=== PATIENT | male | born 1960 | race Caucasian/White ===

== ENCOUNTER 2018-09-20 19:03 | Inpatient (IN) ==
[2018-09-20] MEDS ORDERED: SODIUM CHLORIDE 0.9% 500 ML IV STA (19:33)
[2018-09-20] MEDS ORDERED: ONDANSETRON 4 MG/2 ML VIAL IV STA (19:33)
[2018-09-20] MEDS ORDERED: HYDROmorphone 2 MG/1 ML VIAL IV STA (19:33)
[2018-09-20] MEDS ORDERED: PANTOPRAZOLE 40 MG VIAL IV STA (19:33)
[2018-09-20 20:17] LABS: Basophils % 0.2 % (0.0-0.8); Eosinophils # 0.1 10*3/uL (0.0-0.87); Eosinophils % 1.4 % (0.00-10.9); Hematocrit 32.6 VOL% (42.0-52.0); Hemoglobin 10.5 GM/DL (14.0-18.0); Immature Granulocytes % 0.4 %; Immature Granulocytes Absolute 0.03 #; Lymphocytes # 1.7 10*3/uL (1.4-4.0); Lymphocytes % 20.7 % (21.2-54.2); Mean Corpuscular HGB Conc 32.2 GM/DL (32-36); Mean Corpuscular Hemoglobin 27 PG (27-34); Mean Platelet Volume 9.1 FL (9.6-12.0); Monocytes % 11.9 % (1.7-12.7); Neutrophils # 5.2 10*3/uL (1.4-7.4); Neutrophils % 65.4 % (38.7-73.9); Platelet Count 384 T/CUMM (130-400); Red Blood Count 3.88 MC/CUMM (3.8-5.5); Red Cell Distribution Width 15.6 % (9.3-17.3)
[2018-09-20 20:32] LABS: Apearance,Urine Slightly Hazy (Clear); Bilirubin,Urine Negative (Negative); Blood, Urine Large mg/dL (Negative); Glucose,Urine (UA) Negative (Negative); Ketones,Urine Negative (Negative); Mucus,Urine Occasional /LPF (Occasional); Nitrite,Urine Negative (Negative); Protein,Urine >=500 MG/DL; RBC,Urine 2684 /HPF (0-4); Urine Color Red (Yellow); Urine Specific Gravity 1.011 (1.001-1.035); Urine Urobilinogen < 2.0 EU/DL (0.2-1.0)
[2018-09-20 20:35] LABS: Alanine Aminotransferase 15 U/L (16-61); Albumin 2.7 G/DL (3.4-5.0); Alkaline Phosphatase 87 U/L (45-117); Amylase 38 U/L (25-115); Aspartate Amino Transferase 14 U/L (0-37); Bilirubin,Total < 0.39 MG/DL (0.2-1.0); Blood Urea Nitrogen 12 MG/DL (7-18); Calcium 9.3 MG/DL (8.5-10.1); Glucose 78 MG/DL (74-106); Osmolality,Calculated 258.8 MOS/KG (273-304); Potassium 4.5 MMOL/L (3.5-5.1); Sodium 130 MMOL/L (136-145); Total Protein 7.9 G/DL (6.4-8.3); Troponin I < 0.015 NG/ML (0.00-0.045)
[2018-09-20] MEDS: SODIUM CHLORIDE 0.9% 1,000 ML IV SCH (23:58)
[2018-09-21] MEDS: cefTRIAXone 1,000 MG in SYRINGE 1 EACH IV SCH ×2 (00:10→23:08)
[2018-09-21] MEDS: HYDROmorphone 2 MG/1 ML VIAL IV PRN ×6 (00:13→23:13)
[2018-09-21 05:19] LABS: Basophils % 0.3 % (0.0-0.8); Eosinophils # 0.1 10*3/uL (0.0-0.87); Eosinophils % 1.4 % (0.00-10.9); Hematocrit 24.8 VOL% (42.0-52.0); Hemoglobin 7.8 GM/DL (14.0-18.0); Immature Granulocytes % 0.5 %; Immature Granulocytes Absolute 0.04 #; Lymphocytes # 1.9 10*3/uL (1.4-4.0); Mean Corpuscular HGB Conc 31.5 GM/DL (32-36); Mean Corpuscular Hemoglobin 27 PG (27-34); Mean Corpuscular Volume 85.8 FL (87-102); Mean Platelet Volume 9.1 FL (9.6-12.0); Monocytes # 1.2 10*3/uL (0.11-0.8); Monocytes % 15.3 % (1.7-12.7); Neutrophils # 4.4 10*3/uL (1.4-7.4); Neutrophils % 57.5 % (38.7-73.9); Platelet Count 396 T/CUMM (130-400); Red Blood Count 2.89 MC/CUMM (3.8-5.5); Red Cell Distribution Width 15.6 % (9.3-17.3); White Blood Count 7.6 T/CUMM (4-12)
[2018-09-21 05:51] LABS: Albumin 2.6 G/DL (3.4-5.0); Bilirubin,Total 0.5 MG/DL (0.2-1.0); Osmolality,Calculated 265.2 MOS/KG (273-304); Potassium 4.6 MMOL/L (3.5-5.1); Total Protein 7.1 G/DL (6.4-8.3)
[2018-09-21] MEDS ORDERED: SODIUM CHLORIDE 0.9% 1,000 ML IV PRN ×2 (07:42→11:40)
[2018-09-21] MEDS: PANTOPRAZOLE 40 MG TABLET PO SCH (08:10)
[2018-09-21] MEDS: SODIUM CHLORIDE 0.9% 1,000 ML IV SCH (08:12)
[2018-09-21] MEDS: OXYBUTYNIN XL 10 MG TABLET PO SCH (11:59)
[2018-09-21] MEDS: LISINOPRIL 20 MG TABLET PO SCH (12:06)
[2018-09-21] MEDS: oxyCODONE/ACETAMINOPHEN 5-325 MG TABLET PO PRN ×2 (12:10→19:25)
[2018-09-22] MEDS: HYDROmorphone 2 MG/1 ML VIAL IV PRN ×4 (03:31→20:21)
[2018-09-22] MEDS: SODIUM CHLORIDE 0.9% 1,000 ML IV SCH (03:35)
[2018-09-22 04:52] LABS: Basophils % 0.3 % (0.0-0.8); Eosinophils # 0.1 10*3/uL (0.0-0.87); Eosinophils % 1.8 % (0.00-10.9); Hematocrit 29.4 VOL% (42.0-52.0); Hemoglobin 9.2 GM/DL (14.0-18.0); Immature Granulocytes % 0.4 %; Immature Granulocytes Absolute 0.03 #; Lymphocytes # 1.4 10*3/uL (1.4-4.0); Lymphocytes % 18.3 % (21.2-54.2); Mean Corpuscular HGB Conc 31.3 GM/DL (32-36); Mean Corpuscular Hemoglobin 27 PG (27-34); Mean Platelet Volume 9.2 FL (9.6-12.0); Monocytes # 0.9 10*3/uL (0.11-0.8); Monocytes % 11.8 % (1.7-12.7); Neutrophils # 5.2 10*3/uL (1.4-7.4); Neutrophils % 67.4 % (38.7-73.9); Platelet Count 371 T/CUMM (130-400); Red Blood Count 3.42 MC/CUMM (3.8-5.5); Red Cell Distribution Width 15.4 % (9.3-17.3); White Blood Count 7.8 T/CUMM (4-12)
[2018-09-22 05:01] LABS: Calcium 9.3 MG/DL (8.5-10.1); Osmolality,Calculated 261.5 MOS/KG (273-304); Potassium 4.3 MMOL/L (3.5-5.1)
[2018-09-22] MEDS: oxyCODONE/ACETAMINOPHEN 5-325 MG TABLET PO PRN (09:49)
[2018-09-22] MEDS: LISINOPRIL 20 MG TABLET PO SCH (09:49)
[2018-09-22] MEDS: PANTOPRAZOLE 40 MG TABLET PO SCH (09:49)
[2018-09-22] MEDS: OXYBUTYNIN XL 10 MG TABLET PO SCH (09:49)
[2018-09-22] MEDS ORDERED: NALOXONE 0.4 MG/ML VIAL IV PRN (11:48)
[2018-09-23] MEDS: HYDROmorphone 2 MG/1 ML VIAL IV PRN ×6 (00:06→22:18)
[2018-09-23] MEDS: cefTRIAXone 1,000 MG in SYRINGE 1 EACH IV SCH (00:06)
[2018-09-23 05:21] LABS: Basophils % 0.3 % (0.0-0.8); Eosinophils # 0.1 10*3/uL (0.0-0.87); Eosinophils % 1.9 % (0.00-10.9); Hematocrit 28.4 VOL% (42.0-52.0); Immature Granulocytes % 0.3 %; Immature Granulocytes Absolute 0.02 #; Lymphocytes # 1.4 10*3/uL (1.4-4.0); Lymphocytes % 19.3 % (21.2-54.2); Mean Corpuscular HGB Conc 31.7 GM/DL (32-36); Mean Corpuscular Hemoglobin 28 PG (27-34); Mean Corpuscular Volume 86.9 FL (87-102); Mean Platelet Volume 9.2 FL (9.6-12.0); Monocytes # 1.1 10*3/uL (0.11-0.8); Monocytes % 14.4 % (1.7-12.7); Neutrophils # 4.7 10*3/uL (1.4-7.4); Neutrophils % 63.8 % (38.7-73.9); Platelet Count 341 T/CUMM (130-400); Red Blood Count 3.27 MC/CUMM (3.8-5.5); Red Cell Distribution Width 15.3 % (9.3-17.3); White Blood Count 7.4 T/CUMM (4-12)
[2018-09-23 05:45] LABS: Calcium 9.4 MG/DL (8.5-10.1); Osmolality,Calculated 261.5 MOS/KG (273-304); Potassium 4.3 MMOL/L (3.5-5.1)
[2018-09-23] MEDS: LISINOPRIL 20 MG TABLET PO SCH (09:07)
[2018-09-23] MEDS: OXYBUTYNIN XL 10 MG TABLET PO SCH (09:07)
[2018-09-23] MEDS: PANTOPRAZOLE 40 MG TABLET PO SCH (09:07)
[2018-09-23] MEDS: SODIUM CHLORIDE 0.9% 1,000 ML IV SCH (09:53)
[2018-09-23] MEDS: oxyCODONE/ACETAMINOPHEN 5-325 MG TABLET PO PRN (19:42)
[2018-09-24] MEDS: cefTRIAXone 1,000 MG in SYRINGE 1 EACH IV SCH ×2 (00:10→22:58)
[2018-09-24] MEDS: HYDROmorphone 2 MG/1 ML VIAL IV PRN ×5 (04:16→22:56)
[2018-09-24 05:30] LABS: Calcium 9.6 MG/DL (8.5-10.1); Osmolality,Calculated 261.5 MOS/KG (273-304); Potassium 4.2 MMOL/L (3.5-5.1)
[2018-09-24] MEDS: LISINOPRIL 20 MG TABLET PO SCH (09:32)
[2018-09-24] MEDS: OXYBUTYNIN XL 10 MG TABLET PO SCH (09:33)
[2018-09-24] MEDS: oxyCODONE/ACETAMINOPHEN 5-325 MG TABLET PO PRN (09:33)
[2018-09-24] MEDS: PANTOPRAZOLE 40 MG TABLET PO SCH (09:33)
[2018-09-24] MEDS: SODIUM CHLORIDE 0.9% 1,000 ML IV SCH (15:11)
[2018-09-25 04:47] LABS: Basophils % 0.1 % (0.0-0.8); Eosinophils # 0.3 10*3/uL (0.0-0.87); Eosinophils % 3.8 % (0.00-10.9); Hematocrit 27.7 VOL% (42.0-52.0); Hemoglobin 8.7 GM/DL (14.0-18.0); Immature Granulocytes % 0.4 %; Immature Granulocytes Absolute 0.03 #; Lymphocytes # 1.7 10*3/uL (1.4-4.0); Lymphocytes % 25.3 % (21.2-54.2); Mean Corpuscular HGB Conc 31.4 GM/DL (32-36); Mean Corpuscular Hemoglobin 27 PG (27-34); Mean Corpuscular Volume 85.5 FL (87-102); Mean Platelet Volume 9.3 FL (9.6-12.0); Monocytes # 1.1 10*3/uL (0.11-0.8); Monocytes % 15.8 % (1.7-12.7); Neutrophils # 3.7 10*3/uL (1.4-7.4); Neutrophils % 54.6 % (38.7-73.9); Platelet Count 325 T/CUMM (130-400); Red Blood Count 3.24 MC/CUMM (3.8-5.5); Red Cell Distribution Width 15.2 % (9.3-17.3); White Blood Count 6.8 T/CUMM (4-12)
[2018-09-25 06:05] LABS: Eosinophils 4 % (0-10); Lymphocytes 33 % (20-55); Platelet Estimate Decreased; Polychromasia Slight; Segmented Neutrophils 58 % (50-85); Total Cells Counted 100
[2018-09-25] MEDS: HYDROmorphone 2 MG/1 ML VIAL IV PRN ×2 (06:33→09:38)
[2018-09-25] MEDS ORDERED: HYDROmorphone PCA 30 MG/30 ML SYRINGE IV SCH (07:00)
[2018-09-25] MEDS ORDERED: ceFAZolin 1,000 MG in SYRINGE 1 EACH IV ONE (08:30)
[2018-09-25] MEDS ORDERED: DIAZEPAM 5 MG TABLET PO ONE ×2 (08:31→17:36)
[2018-09-25] MEDS: SODIUM CHLORIDE 0.9% 1,000 ML IV SCH ×4 (08:54→19:00)
[2018-09-25] MEDS ORDERED: fentaNYL 100 MCG/2 ML VIAL IV ONE (09:00)
[2018-09-25] MEDS ORDERED: MIDAZOLAM 2 MG/2 ML VIAL IV ONE (09:00)
[2018-09-25] MEDS: PANTOPRAZOLE 40 MG TABLET PO SCH (09:43)
[2018-09-25] MEDS: LISINOPRIL 20 MG TABLET PO SCH (09:43)
[2018-09-25] MEDS: OXYBUTYNIN XL 10 MG TABLET PO SCH (09:45)
[2018-09-25] MEDS ORDERED: HEPARIN/NACL 0.9% 2 UNITS/ML 2,000 ML IV ONE (10:16)
[2018-09-25] MEDS: HYDROmorphone PCA 30 MG/30 ML SYRINGE IV SCH (11:06)
[2018-09-25] MEDS ORDERED: MIDAZOLAM 2 MG/2 ML VIAL ONE ×2 (13:37→14:32)
[2018-09-25] MEDS: oxyCODONE/ACETAMINOPHEN 5-325 MG TABLET PO PRN ×2 (15:29→22:19)
[2018-09-25] MEDS ORDERED: HYDROmorphone 2 MG/1 ML VIAL IV ONE (16:09)
[2018-09-25] MEDS: oxyCODONE ER 10 MG TABLET PO SCH (16:17)
[2018-09-25] MEDS ORDERED: SODIUM CHLORIDE 0.9% 1,000 ML IV PRN ×2 (17:19→19:37)
[2018-09-25] MEDS ORDERED: FAMOTIDINE 20 MG TABLET PO ONE (17:36)
[2018-09-25] MEDS: LORazepam 2 MG/1 ML VIAL IV PRN (22:19)
[2018-09-25] MEDS: cefTRIAXone 1,000 MG in SYRINGE 1 EACH IV SCH (22:30)
[2018-09-26] MEDS: SODIUM CHLORIDE 0.9% 1,000 ML IV SCH ×3 (03:15→20:46)
[2018-09-26] MEDS: oxyCODONE ER 10 MG TABLET PO SCH ×2 (05:08→15:30)
[2018-09-26 06:12] LABS: Basophils % 0.2 % (0.0-0.8); Eosinophils # 0.1 10*3/uL (0.0-0.87); Eosinophils % 1.1 % (0.00-10.9); Hematocrit 32.1 VOL% (42.0-52.0); Hemoglobin 10.2 GM/DL (14.0-18.0); Immature Granulocytes % 0.5 %; Immature Granulocytes Absolute 0.05 #; Lymphocytes # 1.1 10*3/uL (1.4-4.0); Lymphocytes % 10.4 % (21.2-54.2); Mean Corpuscular HGB Conc 31.8 GM/DL (32-36); Mean Corpuscular Hemoglobin 27 PG (27-34); Mean Corpuscular Volume 85.4 FL (87-102); Mean Platelet Volume 9.6 FL (9.6-12.0); Monocytes # 1.5 10*3/uL (0.11-0.8); Monocytes % 14.4 % (1.7-12.7); Neutrophils # 7.6 10*3/uL (1.4-7.4); Neutrophils % 73.4 % (38.7-73.9); Platelet Count 337 T/CUMM (130-400); Red Blood Count 3.76 MC/CUMM (3.8-5.5); White Blood Count 10.4 T/CUMM (4-12)
[2018-09-26 06:22] LABS: Calcium 9.4 MG/DL (8.5-10.1); Osmolality,Calculated 260.5 MOS/KG (273-304); Potassium 4.1 MMOL/L (3.5-5.1)
[2018-09-26] MEDS ORDERED: DIAZEPAM 5 MG TABLET PO ONE (07:00)
[2018-09-26] MEDS ORDERED: FAMOTIDINE 20 MG TABLET PO ONE (07:00)
[2018-09-26] MEDS ORDERED: ROPIVACAINE 0.5% 30 ML VIAL ONE (09:37)
[2018-09-26 09:44] LABS: ABG Base Excess -3.9 MMOL/L (-2.5-2.5); ABG HCO3 21.2 MMOL/L (20-26); ABG Oxygen Saturation 99.5 % (95-100); ABG PH 7.362 (7.35-7.45); ABG TCO2 18.8 MMOL/L (23-27); Glucose Heart Surgery 148 MG/DL (74-106); Hematocrit Heart Surgery 34.8 PERCENT (42-52); Hemoglobin Heart Surgery 11.3 G/DL (14.0-18.0); PCO2 Patient Temp Arterial 35.2 MMHG; PH Patient Temp Arterial 7.376; Patient Temperature 36 CELCIUS; Potassium Heart/CVR 4.3 MMOL/L (3.5-5.1); Sodium Heart/CVR 128 MMOL/L (135-145)
[2018-09-26 09:46] LABS: Basophils % 0.2 % (0.0-0.8); Eosinophils # 0.2 10*3/uL (0.0-0.87); Eosinophils % 1.1 % (0.00-10.9); Hemoglobin 9.9 GM/DL (14.0-18.0); Immature Granulocytes % 0.9 %; Immature Granulocytes Absolute 0.12 #; Lymphocytes % 6.9 % (21.2-54.2); Mean Corpuscular HGB Conc 31.9 GM/DL (32-36); Mean Corpuscular Hemoglobin 28 PG (27-34); Mean Corpuscular Volume 86.6 FL (87-102); Mean Platelet Volume 9.2 FL (9.6-12.0); Monocytes # 1.2 10*3/uL (0.11-0.8); Monocytes % 8.7 % (1.7-12.7); Neutrophils # 11.4 10*3/uL (1.4-7.4); Neutrophils % 82.2 % (38.7-73.9); Platelet Count 313 T/CUMM (130-400); Red Blood Count 3.58 MC/CUMM (3.8-5.5); Red Cell Distribution Width 14.6 % (9.3-17.3); White Blood Count 13.9 T/CUMM (4-12)
[2018-09-26 10:18] LABS: Albumin 2.1 G/DL (3.4-5.0); Bilirubin,Total 0.6 MG/DL (0.2-1.0); Calcium 8.2 MG/DL (8.5-10.1); Osmolality,Calculated 265.4 MOS/KG (273-304); Potassium 4.5 MMOL/L (3.5-5.1); Total Protein 5.2 G/DL (6.4-8.3)
[2018-09-26] MEDS ORDERED: PHENYLEPHRINE DRIP 20 MG/250 ML PREMIX IV ONE (10:29)
[2018-09-26] MEDS ORDERED: ALBUMIN 5% 12.5 GM/250 ML VIAL IV ONE (10:29)
[2018-09-26] MEDS ORDERED: SEVOFLURANE 1 UNIT/15 MINUTE INH ONE (10:29)
[2018-09-26] MEDS ORDERED: PROPOFOL 200 MG/20 ML VIAL IV ONE (10:29)
[2018-09-26] MEDS ORDERED: ONDANSETRON 4 MG/2 ML VIAL ONE ×2 (10:30→10:34)
[2018-09-26] MEDS ORDERED: MIDAZOLAM 2 MG/2 ML VIAL ONE (10:30)
[2018-09-26] MEDS ORDERED: METOPROLOL TARTRATE 5 MG/5 ML VIAL IV ONE (10:30)
[2018-09-26] MEDS ORDERED: DEXAMETHASONE 4 MG/1 ML VIAL ONE (10:30)
[2018-09-26] MEDS ORDERED: SUFentanil 50 MCG/ML AMP ONE (10:30)
[2018-09-26] MEDS ORDERED: PHENYLEPHRINE 1 MG/10 ML SYRINGE IV ONE (10:31)
[2018-09-26] MEDS ORDERED: ROCURONIUM 100 MG/10 ML VIAL IV ONE (10:31)
[2018-09-26] MEDS ORDERED: LACTATED RINGERS 2,000 ML IV ONE (10:31)
[2018-09-26] MEDS ORDERED: HEPARIN/NACL 0.9% 2 UNITS/ML 500 ML IV ONE (10:31)
[2018-09-26] MEDS ORDERED: SODIUM CHLORIDE 0.9% 1,000 ML IV ONE (10:31)
[2018-09-26] MEDS ORDERED: NEOSTIGMINE 10 MG/10 ML VIAL ONE (10:32)
[2018-09-26] MEDS ORDERED: GLYCOPYRROLATE 0.4 MG/2 ML VIAL ONE (10:32)
[2018-09-26] MEDS ORDERED: CALCIUM CHLORIDE 1,000 MG/10 ML VIAL IV ONE (10:33)
[2018-09-26] MEDS ORDERED: HYDROmorphone 2 MG/1 ML VIAL ONE (10:34)
[2018-09-26] MEDS ORDERED: HYDROmorphone 2 MG/1 ML VIAL IV PRN (10:37)
[2018-09-26] MEDS: LISINOPRIL 20 MG TABLET PO SCH (11:18)
[2018-09-26] MEDS: OXYBUTYNIN XL 10 MG TABLET PO SCH (11:18)
[2018-09-26] MEDS: PANTOPRAZOLE 40 MG TABLET PO SCH (11:18)
[2018-09-26] MEDS: HYDROmorphone PCA 30 MG/30 ML SYRINGE IV SCH (11:23)
[2018-09-26] MEDS: KETAMINE IV SCH (11:52)
[2018-09-26] MEDS: SODIUM CHLORIDE 0.9% IV SCH (11:52)
[2018-09-26] MEDS ORDERED: GLUCAGON 1 MG VIAL IM PRN (11:57)
[2018-09-26] MEDS ORDERED: DEXTROSE 50% 25 GM/50 ML SYRINGE IV PRN (11:57)
[2018-09-26] MEDS ORDERED: SODIUM CHLORIDE 0.9% IV SCH (12:00)
[2018-09-26] MEDS ORDERED: KETAMINE IV SCH (12:00)
[2018-09-26] MEDS: hydrALAZINE 20 MG/1 ML VIAL IV PRN (13:33)
[2018-09-26 14:57] LABS: Hematocrit 33.8 VOL% (42.0-52.0); Hemoglobin 10.7 GM/DL (14.0-18.0)
[2018-09-26] MEDS ORDERED: AMINO ACIDS/DEXT/LYTES 4.25-5% 2,000 ML IV SCH (17:00)
[2018-09-26] MEDS ORDERED: cloNIDine 0.3 MG/24 HR PATCH TRANSDERM SCH (18:00)
[2018-09-26] MEDS: LORazepam 2 MG/1 ML VIAL IV PRN (22:27)
[2018-09-26] MEDS: cefTRIAXone 1,000 MG in SYRINGE 1 EACH IV SCH (22:30)
[2018-09-27 04:09] LABS: Basophils % 0.1 % (0.0-0.8); Immature Granulocytes % 0.6 %; Immature Granulocytes Absolute 0.08 #; Lymphocytes # 1.5 10*3/uL (1.4-4.0); Lymphocytes % 10.8 % (21.2-54.2); Mean Corpuscular HGB Conc 33.3 GM/DL (32-36); Mean Corpuscular Hemoglobin 28 PG (27-34); Mean Corpuscular Volume 83.1 FL (87-102); Mean Platelet Volume 10.4 FL (9.6-12.0); Monocytes % 14.2 % (1.7-12.7); Neutrophils # 10.4 10*3/uL (1.4-7.4); Neutrophils % 74.3 % (38.7-73.9); Platelet Count 315 T/CUMM (130-400); Red Blood Count 3.61 MC/CUMM (3.8-5.5); Red Cell Distribution Width 14.7 % (9.3-17.3); White Blood Count 14.1 T/CUMM (4-12)
[2018-09-27] MEDS: oxyCODONE ER 10 MG TABLET PO SCH ×3 (04:20→20:15)
[2018-09-27 04:25] LABS: Calcium 8.5 MG/DL (8.5-10.1); Osmolality,Calculated 262.5 MOS/KG (273-304); Potassium 4.3 MMOL/L (3.5-5.1)
[2018-09-27] MEDS: SODIUM CHLORIDE 0.9% 1,000 ML IV SCH ×3 (04:29→20:15)
[2018-09-27] MEDS: hydrALAZINE 20 MG/1 ML VIAL IV PRN (04:32)
[2018-09-27] MEDS: SODIUM CHLORIDE 0.9% IV SCH ×2 (04:43→12:43)
[2018-09-27] MEDS: KETAMINE IV SCH ×2 (04:43→12:43)
[2018-09-27] MEDS: oxyCODONE/ACETAMINOPHEN 5-325 MG TABLET PO PRN ×2 (09:44→20:15)
[2018-09-27] MEDS: OXYBUTYNIN XL 10 MG TABLET PO SCH (09:46)
[2018-09-27] MEDS: LISINOPRIL 20 MG TABLET PO SCH (09:46)
[2018-09-27] MEDS: PANTOPRAZOLE 40 MG TABLET PO SCH (09:46)
[2018-09-27] MEDS: HYDROmorphone PCA 30 MG/30 ML SYRINGE IV SCH (12:43)
[2018-09-28 04:14] LABS: Basophils % 0.1 % (0.0-0.8); Eosinophils % 0.3 % (0.00-10.9); Hemoglobin 8.3 GM/DL (14.0-18.0); Immature Granulocytes % 0.8 %; Immature Granulocytes Absolute 0.07 #; Lymphocytes # 1.3 10*3/uL (1.4-4.0); Lymphocytes % 14.8 % (21.2-54.2); Mean Corpuscular HGB Conc 31.9 GM/DL (32-36); Mean Corpuscular Hemoglobin 27 PG (27-34); Mean Corpuscular Volume 84.7 FL (87-102); Mean Platelet Volume 9.9 FL (9.6-12.0); Monocytes # 1.3 10*3/uL (0.11-0.8); Monocytes % 14.1 % (1.7-12.7); Neutrophils # 6.2 10*3/uL (1.4-7.4); Neutrophils % 69.9 % (38.7-73.9); Platelet Count 281 T/CUMM (130-400); Red Blood Count 3.07 MC/CUMM (3.8-5.5); Red Cell Distribution Width 15.2 % (9.3-17.3); White Blood Count 8.9 T/CUMM (4-12)
[2018-09-28] MEDS: SODIUM CHLORIDE 0.9% 1,000 ML IV SCH ×3 (04:20→20:44)
[2018-09-28 04:33] LABS: Calcium 8.2 MG/DL (8.5-10.1); Osmolality,Calculated 262.4 MOS/KG (273-304); Potassium 3.9 MMOL/L (3.5-5.1)
[2018-09-28] MEDS: SODIUM CHLORIDE 0.9% IV SCH (05:45)
[2018-09-28] MEDS: KETAMINE IV SCH (05:45)
[2018-09-28] MEDS: hydrALAZINE 20 MG/1 ML VIAL IV PRN (09:41)
[2018-09-28] MEDS: LISINOPRIL 20 MG TABLET PO SCH (09:41)
[2018-09-28] MEDS: PANTOPRAZOLE 40 MG TABLET PO SCH (09:42)
[2018-09-28] MEDS: OXYBUTYNIN XL 10 MG TABLET PO SCH (09:42)
[2018-09-28] MEDS: oxyCODONE ER 10 MG TABLET PO SCH ×2 (09:53→20:41)
[2018-09-28] MEDS: fentaNYL 50 MCG/HR PATCH TRANSDERM SCH (10:05)
[2018-09-28] MEDS: HYDROmorphone PCA 30 MG/30 ML SYRINGE IV SCH (11:10)
[2018-09-28] MEDS: POLYETHYLENE GLYCOL POWDER 17 GM PACK PO SCH ×2 (11:16→20:46)
[2018-09-28] MEDS: LACTULOSE 20 GM/30 ML UDCUP PO SCH ×2 (11:16→20:39)
[2018-09-28] MEDS: MULTIVITAMIN (BEROCCA) TABLET PO SCH (11:38)
[2018-09-28] MEDS: DOCUSATE SODIUM 100 MG CAPSULE PO SCH ×2 (11:38→20:40)
[2018-09-28] MEDS: oxyCODONE/ACETAMINOPHEN 5-325 MG TABLET PO PRN (20:40)
[2018-09-29] MEDS: SODIUM CHLORIDE 0.9% 1,000 ML IV SCH ×3 (04:25→23:21)
[2018-09-29 06:32] LABS: Basophils % 0.3 % (0.0-0.8); Eosinophils # 0.1 10*3/uL (0.0-0.87); Eosinophils % 1.8 % (0.00-10.9); Hematocrit 25.1 VOL% (42.0-52.0); Hemoglobin 8.1 GM/DL (14.0-18.0); Immature Granulocytes % 0.8 %; Immature Granulocytes Absolute 0.06 #; Lymphocytes # 1.3 10*3/uL (1.4-4.0); Lymphocytes % 16.3 % (21.2-54.2); Mean Corpuscular HGB Conc 32.3 GM/DL (32-36); Mean Corpuscular Hemoglobin 27 PG (27-34); Mean Corpuscular Volume 84.5 FL (87-102); Monocytes # 1.1 10*3/uL (0.11-0.8); Monocytes % 13.2 % (1.7-12.7); Neutrophils # 5.4 10*3/uL (1.4-7.4); Neutrophils % 67.6 % (38.7-73.9); Platelet Count 311 T/CUMM (130-400); Red Blood Count 2.97 MC/CUMM (3.8-5.5); Red Cell Distribution Width 14.9 % (9.3-17.3)
[2018-09-29 07:00] LABS: Calcium 8.2 MG/DL (8.5-10.1); Osmolality,Calculated 264.2 MOS/KG (273-304); Potassium 3.7 MMOL/L (3.5-5.1)
[2018-09-29] MEDS: oxyCODONE ER 10 MG TABLET PO SCH ×2 (09:19→20:35)
[2018-09-29] MEDS: OXYBUTYNIN XL 10 MG TABLET PO SCH (09:20)
[2018-09-29] MEDS: DOCUSATE SODIUM 100 MG CAPSULE PO SCH ×2 (09:20→20:36)
[2018-09-29] MEDS: PANTOPRAZOLE 40 MG TABLET PO SCH (09:20)
[2018-09-29] MEDS: MULTIVITAMIN (BEROCCA) TABLET PO SCH (09:20)
[2018-09-29] MEDS: LISINOPRIL 20 MG TABLET PO SCH (09:20)
[2018-09-29] MEDS: LACTULOSE 20 GM/30 ML UDCUP PO SCH ×2 (14:25→20:36)
[2018-09-29] MEDS: POLYETHYLENE GLYCOL POWDER 17 GM PACK PO SCH ×2 (14:25→20:37)
[2018-09-29] MEDS: HYDROmorphone PCA 30 MG/30 ML SYRINGE IV SCH (18:04)
[2018-09-30] MEDS: ALUMINUM/MAGNES/SIMETH MAX STR 30 ML UDCUP PO PRN ×3 (03:55→20:27)
[2018-09-30 05:33] LABS: Basophils % 0.2 % (0.0-0.8); Eosinophils # 0.1 10*3/uL (0.0-0.87); Eosinophils % 1.6 % (0.00-10.9); Hematocrit 26.6 VOL% (42.0-52.0); Hemoglobin 8.5 GM/DL (14.0-18.0); Immature Granulocytes % 0.7 %; Immature Granulocytes Absolute 0.06 #; Lymphocytes # 1.5 10*3/uL (1.4-4.0); Lymphocytes % 16.7 % (21.2-54.2); Mean Corpuscular Hemoglobin 27 PG (27-34); Mean Corpuscular Volume 85.8 FL (87-102); Mean Platelet Volume 9.5 FL (9.6-12.0); Monocytes # 1.3 10*3/uL (0.11-0.8); Neutrophils % 66.8 % (38.7-73.9); Platelet Count 356 T/CUMM (130-400); Red Cell Distribution Width 14.7 % (9.3-17.3); White Blood Count 8.9 T/CUMM (4-12)
[2018-09-30 05:46] LABS: Calcium 8.5 MG/DL (8.5-10.1); Osmolality,Calculated 261.5 MOS/KG (273-304); Potassium 3.7 MMOL/L (3.5-5.1)
[2018-09-30 05:51] LABS: % Iron Saturation 9.9 % (18-50); Ferritin 204.8 ng/ml (26-388)
[2018-09-30] MEDS: SODIUM CHLORIDE 0.9% 1,000 ML IV SCH ×3 (07:10→20:29)
[2018-09-30] MEDS: MULTIVITAMIN (BEROCCA) TABLET PO SCH (08:39)
[2018-09-30] MEDS: DOCUSATE SODIUM 100 MG CAPSULE PO SCH ×2 (08:39→22:01)
[2018-09-30] MEDS: OXYBUTYNIN XL 10 MG TABLET PO SCH (08:39)
[2018-09-30] MEDS: LISINOPRIL 20 MG TABLET PO SCH (08:39)
[2018-09-30] MEDS: oxyCODONE ER 10 MG TABLET PO SCH ×2 (08:40→22:01)
[2018-09-30] MEDS: PANTOPRAZOLE 40 MG TABLET PO SCH (08:40)
[2018-09-30] MEDS: LACTULOSE 20 GM/30 ML UDCUP PO SCH ×2 (08:40→22:02)
[2018-09-30] MEDS: POLYETHYLENE GLYCOL POWDER 17 GM PACK PO SCH ×2 (08:41→22:01)
[2018-09-30] MEDS: HYDROmorphone PCA 30 MG/30 ML SYRINGE IV SCH ×2 (08:44→11:54)
[2018-09-30] MEDS: MAGNESIUM HYDROXIDE SUSP 30 ML UDCUP PO PRN (13:31)
[2018-10-01] MEDS: hydrALAZINE 20 MG/1 ML VIAL IV PRN (04:42)
[2018-10-01] MEDS: MAGNESIUM HYDROXIDE SUSP 30 ML UDCUP PO PRN (04:46)
[2018-10-01] MEDS: ONDANSETRON 4 MG/2 ML VIAL IV PRN ×2 (04:46→23:06)
[2018-10-01] MEDS: SODIUM CHLORIDE 0.9% 1,000 ML IV SCH ×2 (04:46→12:46)
[2018-10-01 05:28] LABS: Calcium 8.1 MG/DL (8.5-10.1); Osmolality,Calculated 267.1 MOS/KG (273-304); Potassium 3.5 MMOL/L (3.5-5.1)
[2018-10-01] MEDS ORDERED: LINACLOTIDE 145 MCG CAPSULE PO SCH (07:30)
[2018-10-01] MEDS: OXYBUTYNIN XL 10 MG TABLET PO SCH (09:13)
[2018-10-01] MEDS: PANTOPRAZOLE 40 MG TABLET PO SCH (09:13)
[2018-10-01] MEDS: MULTIVITAMIN (BEROCCA) TABLET PO SCH (09:13)
[2018-10-01] MEDS: LISINOPRIL 20 MG TABLET PO SCH (09:13)
[2018-10-01] MEDS: LACTULOSE 20 GM/30 ML UDCUP PO SCH ×3 (09:13→21:11)
[2018-10-01] MEDS: fentaNYL 50 MCG/HR PATCH TRANSDERM SCH (09:13)
[2018-10-01] MEDS: POLYETHYLENE GLYCOL POWDER 17 GM PACK PO SCH ×2 (09:13→21:11)
[2018-10-01] MEDS: DOCUSATE SODIUM 100 MG CAPSULE PO SCH ×2 (09:13→21:11)
[2018-10-01] MEDS: oxyCODONE ER 10 MG TABLET PO SCH (09:16)
[2018-10-01] MEDS: HYDROmorphone PCA 30 MG/30 ML SYRINGE IV SCH (13:52)
[2018-10-01] MEDS ORDERED: POTASSIUM CHLORIDE 20 MEQ TABLET PO ONE (14:30)
[2018-10-01] MEDS ORDERED: METHYLNALTREXONE 12 MG/0.6 ML VIAL SUBCUT ONE (14:45)
[2018-10-01] MEDS: SODIUM PHOSPHATE ENEMA 133 ML BOTTLE RECTAL PRN ×2 (16:33→21:12)
[2018-10-01] MEDS ORDERED: oxyCODONE IR 5 MG TABLET PO PRN (17:50)
[2018-10-01] MEDS: ALVIMOPAN 12 MG CAPSULE PO SCH (21:11)
[2018-10-01] MEDS: LUBIPROSTONE 24 MCG CAPSULE PO SCH (21:11)
[2018-10-02] MEDS: SODIUM CHLORIDE 0.9% 1,000 ML IV SCH ×3 (00:01→21:26)
[2018-10-02] MEDS: LACTULOSE 20 GM/30 ML UDCUP PO SCH ×5 (01:42→20:35)
[2018-10-02] MEDS: POLYETHYLENE GLYCOL POWDER 17 GM PACK PO SCH ×3 (03:28→20:34)
[2018-10-02 05:33] LABS: Basophils % 0.2 % (0.0-0.8); Eosinophils % 0.1 % (0.00-10.9); Hematocrit 28.5 VOL% (42.0-52.0); Immature Granulocytes % 0.9 %; Mean Corpuscular HGB Conc 31.6 GM/DL (32-36); Mean Corpuscular Hemoglobin 27 PG (27-34); Mean Corpuscular Volume 85.8 FL (87-102); Mean Platelet Volume 10.3 FL (9.6-12.0); Monocytes # 1.3 10*3/uL (0.11-0.8); Monocytes % 11.4 % (1.7-12.7); Neutrophils # 8.7 10*3/uL (1.4-7.4); Neutrophils % 78.4 % (38.7-73.9); Platelet Count 472 T/CUMM (130-400); Red Blood Count 3.32 MC/CUMM (3.8-5.5); Red Cell Distribution Width 14.6 % (9.3-17.3)
[2018-10-02] MEDS ORDERED: FAMOTIDINE 20 MG/2 ML VIAL IV ONE (08:07)
[2018-10-02] MEDS ORDERED: ACETAMINOPHEN 500 MG TABLET PO ONE (08:07)
[2018-10-02] MEDS ORDERED: diphenhydrAMINE CAP 25 MG CAPSULE PO ONE (08:07)
[2018-10-02] MEDS ORDERED: DEXAMETHASONE INJ 10 MG in SODIUM CHLORIDE 0.9% 50 ML IV ONE (09:00)
[2018-10-02] MEDS ORDERED: IRON SUCROSE 300 MG in SODIUM CHLORIDE 0.9% 100 ML IV ONE (09:00)
[2018-10-02] MEDS: PANTOPRAZOLE 40 MG TABLET PO SCH (09:08)
[2018-10-02] MEDS: LUBIPROSTONE 24 MCG CAPSULE PO SCH ×2 (09:08→20:34)
[2018-10-02] MEDS: ALVIMOPAN 12 MG CAPSULE PO SCH ×2 (09:08→20:35)
[2018-10-02] MEDS: MULTIVITAMIN (BEROCCA) TABLET PO SCH (09:08)
[2018-10-02] MEDS: OXYBUTYNIN XL 10 MG TABLET PO SCH (09:08)
[2018-10-02] MEDS: DOCUSATE SODIUM 100 MG CAPSULE PO SCH ×2 (09:08→20:35)
[2018-10-02] MEDS: LISINOPRIL 20 MG TABLET PO SCH (09:08)
[2018-10-02] MEDS: ALUMINUM/MAGNES/SIMETH MAX STR 30 ML UDCUP PO PRN (09:09)
[2018-10-02] MEDS: HYDROmorphone PCA 30 MG/30 ML SYRINGE IV SCH (12:59)
[2018-10-02] MEDS: oxyCODONE/ACETAMINOPHEN 5-325 MG TABLET PO PRN ×2 (14:15→20:31)
[2018-10-03] MEDS: POLYETHYLENE GLYCOL POWDER 17 GM PACK PO SCH (03:49)
[2018-10-03] MEDS: LACTULOSE 20 GM/30 ML UDCUP PO SCH ×2 (03:49→06:01)
[2018-10-03] MEDS: MULTIVITAMIN (BEROCCA) TABLET PO SCH (08:35)
[2018-10-03] MEDS: PANTOPRAZOLE 40 MG TABLET PO SCH (08:35)
[2018-10-03] MEDS: LUBIPROSTONE 24 MCG CAPSULE PO SCH (08:35)
[2018-10-03] MEDS: oxyCODONE/ACETAMINOPHEN 5-325 MG TABLET PO PRN (08:35)
[2018-10-03] MEDS: DOCUSATE SODIUM 100 MG CAPSULE PO SCH (08:35)
[2018-10-03] MEDS: ALVIMOPAN 12 MG CAPSULE PO SCH (08:35)
[2018-10-03] MEDS: OXYBUTYNIN XL 10 MG TABLET PO SCH (08:35)
[2018-10-03 08:39] LABS: Basophils % 0.1 % (0.0-0.8); Eosinophils # 0.1 10*3/uL (0.0-0.87); Eosinophils % 0.9 % (0.00-10.9); Hematocrit 25.3 VOL% (42.0-52.0); Hemoglobin 8.1 GM/DL (14.0-18.0); Immature Granulocytes % 0.9 %; Immature Granulocytes Absolute 0.08 #; Lymphocytes % 21.8 % (21.2-54.2); Mean Corpuscular Hemoglobin 28 PG (27-34); Mean Corpuscular Volume 86.1 FL (87-102); Monocytes # 1.3 10*3/uL (0.11-0.8); Monocytes % 14.3 % (1.7-12.7); Neutrophils # 5.7 10*3/uL (1.4-7.4); Platelet Count 486 T/CUMM (130-400); Red Blood Count 2.94 MC/CUMM (3.8-5.5); Red Cell Distribution Width 14.9 % (9.3-17.3); White Blood Count 9.2 T/CUMM (4-12)
[2018-10-03] MEDS: LISINOPRIL 20 MG TABLET PO SCH (08:39)
[2018-10-03 11:56] VITALS: BP 156/67
== END 2018-10-03 12:00 | disposition home or self-care (01) | DRG 657 ==
LOC: N.ED 19:03 → N.EDINP 22:34 → SUATTDRO 22:34 → N.4E 23:13 → N.ICU 09-25 07:53 → N.4E 09-28 17:10
PROVIDERS: ADMIT Emergency Medicine; ATTEND Internal Medicine Cardiovascular Disease
PROC: IREMBBI (2018-09-25 13:00)

== ENCOUNTER 2018-12-21 00:42 | Inpatient (IN) ==
[2018-12-21] MEDS ORDERED: SODIUM CHLORIDE 0.9% 1,000 ML IV STA ×2 (02:30→02:44)
[2018-12-21] MEDS ORDERED: ONDANSETRON 4 MG/2 ML VIAL IV STA (02:30)
[2018-12-21] MEDS ORDERED: VANCOMYCIN INJ 1,250 MG in SODIUM CHLORIDE 0.9% 250 ML IV STA (02:44)
[2018-12-21] MEDS ORDERED: CEFEPIME 2,000 MG in SODIUM CHLORIDE 0.9% 100 ML IV STA (02:44)
[2018-12-21] MEDS ORDERED: NOREPINEPHRINE 8 MG in SODIUM CHLORIDE 0.9% 242 ML IV PRN (02:46)
[2018-12-21] MEDS ORDERED: CEFEPIME 2,000 MG in SYRINGE 1 EACH IV STA (02:47)
[2018-12-21 02:59] LABS: Basophils % 0.3 % (0.0-0.8); Eosinophils # 0.1 10*3/uL (0.0-0.87); Eosinophils % 1.3 % (0.00-10.9); Hematocrit 40.5 VOL% (42.0-52.0); Hemoglobin 13.3 GM/DL (14.0-18.0); Immature Granulocytes % 0.5 %; Immature Granulocytes Absolute 0.04 #; Lymphocytes # 1.8 10*3/uL (1.4-4.0); Lymphocytes % 24.4 % (21.2-54.2); Mean Corpuscular HGB Conc 32.8 GM/DL (32-36); Mean Corpuscular Volume 80.8 FL (87-102); Mean Platelet Volume 11.2 FL (9.6-12.0); Monocytes % 14.4 % (1.7-12.7); Neutrophils % 59.1 % (38.7-73.9); Platelet Count 245 T/CUMM (130-400); Red Blood Count 5.01 MC/CUMM (3.8-5.5); Red Cell Distribution Width 16.9 % (9.3-17.3); White Blood Count 7.5 T/CUMM (4-12)
[2018-12-21] MEDS ORDERED: VANCOMYCIN 1,000 MG VIAL ONE (03:03)
[2018-12-21 03:38] LABS: Alanine Aminotransferase 16 U/L (16-61); Alkaline Phosphatase 96 U/L (45-117); Aspartate Amino Transferase 16 U/L (0-37); Bilirubin,Total < 0.39 MG/DL (0.2-1.0); Blood Urea Nitrogen 64 MG/DL (7-18); Calcium 7.8 MG/DL (8.5-10.1); Glucose 98 MG/DL (74-106); Osmolality,Calculated 264.8 MOS/KG (273-304); Total Protein 7.5 G/DL (6.4-8.3)
[2018-12-21 04:40] LABS: Amorphous Crystals,Urine Occasional /HPF (Few); Apearance,Urine CLOUDY (Clear); Bacteria,Urine Few /HPF (Few); Bilirubin,Urine Negative (Negative); Blood, Urine Small mg/dL (Negative); Glucose,Urine (UA) Negative (Negative); Hyaline Casts,Urine 46 /LPF (0-3); Ketones,Urine Negative (Negative); Mucus,Urine Occasional /LPF (Occasional); Nitrite,Urine Negative (Negative); Protein,Urine 30 MG/DL; RBC,Urine 3 /HPF (0-4); Urine Specific Gravity 1.021 (1.001-1.035); Urine Urobilinogen < 2.0 EU/DL (0.2-1.0); WBC,Urine 5 /HPF (0-6)
[2018-12-21 04:43] LABS: Urine Color Yellow (Yellow)
[2018-12-21] MEDS ORDERED: SODIUM CHLORIDE 0.9% 1,000 ML IV ONE (08:08)
[2018-12-21] MEDS ORDERED: methylPREDNISolone SOD SUC 125 MG/2 ML VIAL IV ONE (08:09)
[2018-12-21] MEDS: DIPHENOXYLATE/ATROPINE 2.5-0.025 MG TABLET PO SCH ×3 (10:13→21:37)
[2018-12-21] MEDS: PANTOPRAZOLE 40 MG TABLET PO SCH (10:13)
[2018-12-21] MEDS: SODIUM CHLORIDE 0.9% 1,000 ML IV SCH (12:36)
[2018-12-21 15:49] LABS: Calcium 7.4 MG/DL (8.5-10.1); Osmolality,Calculated 268.5 MOS/KG (273-304)
[2018-12-21] MEDS: GABAPENTIN 300 MG CAPSULE PO SCH ×2 (16:32→21:37)
[2018-12-21] MEDS: oxyCODONE/ACETAMINOPHEN 5-325 MG TABLET PO PRN ×2 (17:06→22:55)
[2018-12-21] MEDS: methylPREDNISolone SOD SUC 125 MG/2 ML VIAL IV SCH (21:38)
[2018-12-22] MEDS: HYDROmorphone 2 MG/1 ML VIAL IV PRN ×4 (00:04→20:39)
[2018-12-22] MEDS: SODIUM CHLORIDE 0.9% 1,000 ML IV SCH ×4 (00:07→15:52)
[2018-12-22 06:26] LABS: Eosinophils % 0.2 % (0.00-10.9); Hematocrit 30.6 VOL% (42.0-52.0); Hemoglobin 10.3 GM/DL (14.0-18.0); Immature Granulocytes % 0.5 %; Immature Granulocytes Absolute 0.03 #; Lymphocytes # 0.7 10*3/uL (1.4-4.0); Lymphocytes % 11.4 % (21.2-54.2); Mean Corpuscular HGB Conc 33.7 GM/DL (32-36); Mean Corpuscular Volume 80.3 FL (87-102); Monocytes % 3.3 % (1.7-12.7); Neutrophils % 84.6 % (38.7-73.9); Platelet Count 194 T/CUMM (130-400); Red Blood Count 3.81 MC/CUMM (3.8-5.5); Red Cell Distribution Width 16.8 % (9.3-17.3); White Blood Count 6.1 T/CUMM (4-12)
[2018-12-22 06:47] LABS: Albumin 2.4 G/DL (3.4-5.0); Bilirubin,Total 0.8 MG/DL (0.2-1.0); Osmolality,Calculated 268.5 MOS/KG (273-304); Total Protein 6.1 G/DL (6.4-8.3)
[2018-12-22] MEDS ORDERED: LINACLOTIDE 145 MCG CAPSULE PO SCH (09:00)
[2018-12-22] MEDS: GABAPENTIN 300 MG CAPSULE PO SCH ×3 (09:38→20:38)
[2018-12-22] MEDS: DIPHENOXYLATE/ATROPINE 2.5-0.025 MG TABLET PO SCH ×3 (09:39→20:44)
[2018-12-22] MEDS: PANTOPRAZOLE 40 MG TABLET PO SCH (09:39)
[2018-12-22] MEDS: methylPREDNISolone SOD SUC 125 MG/2 ML VIAL IV SCH (09:39)
[2018-12-22] MEDS: predniSONE 20 MG TABLET PO SCH (12:13)
[2018-12-22] MEDS: SODIUM CHLORIDE 23.4% CONC INJ 38.5 MEQ, SODIUM BICARB INJ 100 MEQ in STERILE WATER INJ... IV SCH (12:13)
[2018-12-22] MEDS: fentaNYL 50 MCG/HR PATCH TRANSDERM SCH (12:54)
[2018-12-22] MEDS: oxyCODONE/ACETAMINOPHEN 5-325 MG TABLET PO PRN (18:40)
[2018-12-22] MEDS: ONDANSETRON 4 MG/2 ML VIAL IV PRN (20:56)
[2018-12-22] MEDS ORDERED: methylPREDNISolone SOD SUC 40 MG/1 ML VIAL IV SCH (21:00)
[2018-12-23] MEDS: HYDROmorphone 2 MG/1 ML VIAL IV PRN ×4 (00:42→22:26)
[2018-12-23] MEDS: SODIUM CHLORIDE 23.4% CONC INJ 38.5 MEQ, SODIUM BICARB INJ 100 MEQ in STERILE WATER INJ... IV SCH ×2 (04:43→22:26)
[2018-12-23 05:42] LABS: Calcium 6.7 MG/DL (8.5-10.1); Osmolality,Calculated 266.5 MOS/KG (273-304)
[2018-12-23] MEDS: DIPHENOXYLATE/ATROPINE 2.5-0.025 MG TABLET PO SCH ×3 (08:53→20:26)
[2018-12-23] MEDS: GABAPENTIN 300 MG CAPSULE PO SCH ×3 (08:53→20:26)
[2018-12-23] MEDS: predniSONE 20 MG TABLET PO SCH (08:53)
[2018-12-23] MEDS: PANTOPRAZOLE 40 MG TABLET PO SCH (08:53)
[2018-12-23] MEDS: oxyCODONE/ACETAMINOPHEN 5-325 MG TABLET PO PRN ×2 (08:57→20:29)
[2018-12-23] MEDS ORDERED: MYLANTA/LIDO VISC 2:1 300 ML BOTTLE SWISH/SWAL PRN (10:40)
[2018-12-23] MEDS ORDERED: ONDANSETRON 4 MG/2 ML VIAL IV PRN (10:40)
[2018-12-23] MEDS ORDERED: traMADol 50 MG TABLET PO PRN (10:40)
[2018-12-23] MEDS ORDERED: guaiFENesin 200 MG/10 ML UDCUP PO PRN (10:40)
[2018-12-23] MEDS ORDERED: ALUMINUM/MAGNES/SIMETH MAX STR 30 ML UDCUP PO PRN (10:40)
[2018-12-23] MEDS ORDERED: ACETAMINOPHEN 325 MG TABLET PO PRN (10:40)
[2018-12-23] MEDS ORDERED: chlorproMAZINE INJ 25 MG in SODIUM CHLORIDE 0.9% 100 ML IV PRN (10:40)
[2018-12-23] MEDS ORDERED: LOPERAMIDE 2 MG CAPSULE PO PRN ×2 (10:40)
[2018-12-23] MEDS ORDERED: BENZTROPINE 2 MG/2 ML AMP IV PRN (10:40)
[2018-12-23] MEDS ORDERED: MAGNESIUM HYDROXIDE SUSP 30 ML UDCUP PO PRN (10:40)
[2018-12-23] MEDS ORDERED: PROMETHAZINE INJ 25 MG in SODIUM CHLORIDE 0.9% 50 ML IV PRN (10:40)
[2018-12-23] MEDS ORDERED: TEMAZEPAM 7.5 MG CAPSULE PO PRN (10:40)
[2018-12-23] MEDS ORDERED: LACTULOSE 20 GM/30 ML UDCUP PO PRN (10:40)
[2018-12-23] MEDS ORDERED: diphenhydrAMINE CAP 25 MG CAPSULE PO PRN (10:40)
[2018-12-23] MEDS ORDERED: chlorproMAZINE 25 MG TABLET PO PRN (10:40)
[2018-12-23] MEDS ORDERED: chlorproMAZINE INJ 50 MG in SODIUM CHLORIDE 0.9% 100 ML IV PRN (10:40)
[2018-12-23] MEDS ORDERED: MYLANTA/LIDO VISC 2:1 300 ML BOTTLE SWISH/SPIT PRN (10:40)
[2018-12-23] MEDS ORDERED: ALPRAZolam 0.25 MG TABLET PO PRN (10:40)
[2018-12-23] MEDS ORDERED: POTASSIUM CHLORIDE RIDER 10 MEQ in PREMIX 1 EACH IV PRN (11:02)
[2018-12-23] MEDS: POTASSIUM CHLORIDE RIDER 20 MEQ in PREMIX 1 EACH IV PRN ×2 (13:15→15:42)
[2018-12-24] MEDS: HYDROmorphone 2 MG/1 ML VIAL IV PRN ×2 (03:49→19:52)
[2018-12-24 05:51] LABS: Calcium 7.3 MG/DL (8.5-10.1); Osmolality,Calculated 269.1 MOS/KG (273-304)
[2018-12-24] MEDS ORDERED: FUROSEMIDE 40 MG/4 ML VIAL IV ONE ×2 (07:34→08:32)
[2018-12-24] MEDS ORDERED: FUROSEMIDE 20 MG/2 ML VIAL ONE (07:34)
[2018-12-24] MEDS ORDERED: FUROSEMIDE 40 MG/4 ML VIAL ONE (07:34)
[2018-12-24 08:03] LABS: Basophils % 0.1 % (0.0-0.8); Hematocrit 35.7 VOL% (42.0-52.0); Hemoglobin 12.2 GM/DL (14.0-18.0); Immature Granulocytes % 0.5 %; Immature Granulocytes Absolute 0.09 #; Lymphocytes % 5.2 % (21.2-54.2); Mean Corpuscular HGB Conc 34.2 GM/DL (32-36); Mean Corpuscular Volume 79.2 FL (87-102); Mean Platelet Volume 11.1 FL (9.6-12.0); Monocytes % 1.8 % (1.7-12.7); Neutrophils % 92.4 % (38.7-73.9); Platelet Count 247 T/CUMM (130-400); Red Blood Count 4.51 MC/CUMM (3.8-5.5); Red Cell Distribution Width 16.7 % (9.3-17.3); White Blood Count 19.5 T/CUMM (4-12)
[2018-12-24 08:31] LABS: Calcium 6.8 MG/DL (8.5-10.1); Osmolality,Calculated 269.9 MOS/KG (273-304)
[2018-12-24 08:34] LABS: Albumin 2.5 G/DL (3.4-5.0); Bilirubin,Direct 0.16 MG/DL (0.0-0.20); Bilirubin,Indirect 0.2 MG/DL (0.0-1.0); Bilirubin,Total 0.4 MG/DL (0.2-1.0); Total Protein 5.7 G/DL (6.4-8.3)
[2018-12-24 08:54] LABS: Band Neutrophils 1 % (0-10); Lymphocytes 3 % (20-55); Platelet Estimate Normal; Segmented Neutrophils 90 % (50-85); Total Cells Counted 100
[2018-12-24 08:56] LABS: Burr Cells Few; Ovalocytes Few
[2018-12-24 08:57] LABS: Polychromasia Slight
[2018-12-24] MEDS ORDERED: MAGNESIUM SULF RIDER 2 GM in PREMIX 1 EACH IV ONE (09:15)
[2018-12-24] MEDS: GABAPENTIN 300 MG CAPSULE PO SCH ×3 (11:31→21:09)
[2018-12-24] MEDS: DIPHENOXYLATE/ATROPINE 2.5-0.025 MG TABLET PO SCH ×3 (11:31→21:08)
[2018-12-24] MEDS: predniSONE 20 MG TABLET PO SCH (11:31)
[2018-12-24] MEDS: PANTOPRAZOLE 40 MG TABLET PO SCH (11:32)
[2018-12-24] MEDS: cefTRIAXone 1,000 MG in SYRINGE 1 EACH IV SCH (11:35)
[2018-12-24] MEDS: SODIUM CHLORIDE 23.4% CONC INJ 38.5 MEQ, SODIUM BICARB INJ 100 MEQ in STERILE WATER INJ... IV SCH (12:33)
[2018-12-24 22:56] LABS: ABG Base Excess -1.4 MMOL/L (-2.5-2.5); ABG HCO3 23.1 MMOL/L (20-26); ABG Oxygen Saturation 87.4 % (95-100); ABG PCO2 32.7 MM HG (35-48); ABG PH 7.439 (7.35-7.45); ABG PO2 54.4 MM HG (80-95); ABG TCO2 19.9 MMOL/L (23-27)
[2018-12-25 04:25] LABS: ABG HCO3 24.2 MMOL/L (20-26); ABG PCO2 32.1 MM HG (35-48); ABG PH 7.463 (7.35-7.45); ABG PO2 56.8 MM HG (80-95); ABG TCO2 20.5 MMOL/L (23-27); Pt O2 Delivery Device Other
[2018-12-25 05:07] LABS: Basophils # 0.1 10*3/uL (0.0-0.2); Basophils % 0.2 % (0.0-0.8); Eosinophils % 0.1 % (0.00-10.9); Hematocrit 32.8 VOL% (42.0-52.0); Immature Granulocytes % 1.3 %; Immature Granulocytes Absolute 0.28 #; Lymphocytes # 1.5 10*3/uL (1.4-4.0); Lymphocytes % 6.6 % (21.2-54.2); Mean Corpuscular HGB Conc 33.5 GM/DL (32-36); Mean Corpuscular Volume 80.4 FL (87-102); Mean Platelet Volume 10.2 FL (9.6-12.0); Monocytes % 3.5 % (1.7-12.7); Neutrophils % 88.3 % (38.7-73.9); Platelet Count 208 T/CUMM (130-400); Red Blood Count 4.08 MC/CUMM (3.8-5.5); Red Cell Distribution Width 16.7 % (9.3-17.3); White Blood Count 22.3 T/CUMM (4-12)
[2018-12-25 05:39] LABS: Calcium 7.6 MG/DL (8.5-10.1); Osmolality,Calculated 272.9 MOS/KG (273-304)
[2018-12-25 05:47] LABS: Band Neutrophils 1 % (0-10); Lymphocytes 5 % (20-55); Platelet Estimate Adequate; Segmented Neutrophils 89 % (50-85); Total Cells Counted 100
[2018-12-25] MEDS ORDERED: FUROSEMIDE 40 MG/4 ML VIAL IV ONE (08:06)
[2018-12-25] MEDS: PANTOPRAZOLE 40 MG TABLET PO SCH (09:27)
[2018-12-25] MEDS: predniSONE 20 MG TABLET PO SCH (09:27)
[2018-12-25] MEDS: fentaNYL 50 MCG/HR PATCH TRANSDERM SCH (09:27)
[2018-12-25] MEDS: DIPHENOXYLATE/ATROPINE 2.5-0.025 MG TABLET PO SCH ×3 (09:27→21:56)
[2018-12-25] MEDS: GABAPENTIN 300 MG CAPSULE PO SCH ×3 (09:27→21:56)
[2018-12-25] MEDS: cefTRIAXone 1,000 MG in SYRINGE 1 EACH IV SCH (09:42)
[2018-12-25] MEDS: HYDROmorphone 2 MG/1 ML VIAL IV PRN ×3 (09:58→22:11)
[2018-12-25] MEDS ORDERED: PHENOL 1.4% THROAT SPRAY 177 ML BOTTLE PO PRN (20:45)
[2018-12-25] MEDS ORDERED: METOPROLOL TARTRATE 5 MG/5 ML VIAL IV ONE (21:00)
[2018-12-25] MEDS: POTASSIUM CHLORIDE 20 MEQ TABLET PO PRN (22:11)
[2018-12-25] MEDS: ONDANSETRON 4 MG/2 ML VIAL IV PRN (22:11)
[2018-12-26 06:46] LABS: Calcium 7.5 MG/DL (8.5-10.1); Osmolality,Calculated 277.5 MOS/KG (273-304)
[2018-12-26] MEDS: DIPHENOXYLATE/ATROPINE 2.5-0.025 MG TABLET PO SCH ×3 (09:49→20:13)
[2018-12-26] MEDS: PANTOPRAZOLE 40 MG TABLET PO SCH (09:49)
[2018-12-26] MEDS: GABAPENTIN 300 MG CAPSULE PO SCH ×3 (09:49→20:13)
[2018-12-26] MEDS: cefTRIAXone 1,000 MG in SYRINGE 1 EACH IV SCH (09:49)
[2018-12-26] MEDS: predniSONE 20 MG TABLET PO SCH (09:49)
[2018-12-26] MEDS: HYDROmorphone 2 MG/1 ML VIAL IV PRN ×3 (10:05→20:10)
[2018-12-26] MEDS: oxyCODONE/ACETAMINOPHEN 5-325 MG TABLET PO PRN ×2 (11:18→22:23)
[2018-12-26] MEDS: FUROSEMIDE 40 MG/4 ML VIAL IV SCH ×2 (11:22→16:22)
[2018-12-26] MEDS: ONDANSETRON 4 MG/2 ML VIAL IV PRN (20:10)
[2018-12-27] MEDS: HYDROmorphone 2 MG/1 ML VIAL IV PRN ×2 (04:15→09:29)
[2018-12-27] MEDS: ONDANSETRON 4 MG/2 ML VIAL IV PRN (04:15)
[2018-12-27 05:04] LABS: Calcium 8.2 MG/DL (8.5-10.1); Osmolality,Calculated 277.4 MOS/KG (273-304)
[2018-12-27] MEDS: oxyCODONE/ACETAMINOPHEN 5-325 MG TABLET PO PRN ×3 (07:08→21:22)
[2018-12-27] MEDS: FUROSEMIDE 40 MG/4 ML VIAL IV SCH (08:28)
[2018-12-27] MEDS: predniSONE 20 MG TABLET PO SCH (09:13)
[2018-12-27] MEDS: DIPHENOXYLATE/ATROPINE 2.5-0.025 MG TABLET PO SCH (09:13)
[2018-12-27] MEDS: cefTRIAXone 1,000 MG in SYRINGE 1 EACH IV SCH (09:14)
[2018-12-27] MEDS: PANTOPRAZOLE 40 MG TABLET PO SCH (09:14)
[2018-12-27] MEDS: GABAPENTIN 300 MG CAPSULE PO SCH ×3 (09:14→21:21)
[2018-12-27] MEDS ORDERED: metOLazone 5 MG TABLET PO ONE (13:45)
[2018-12-28 06:43] LABS: Basophils % 0.1 % (0.0-0.8); Eosinophils % 0.2 % (0.00-10.9); Hematocrit 29.1 VOL% (42.0-52.0); Hemoglobin 9.6 GM/DL (14.0-18.0); Immature Granulocytes % 1.6 %; Immature Granulocytes Absolute 0.18 #; Lymphocytes # 1.3 10*3/uL (1.4-4.0); Lymphocytes % 11.6 % (21.2-54.2); Mean Corpuscular Volume 81.3 FL (87-102); Mean Platelet Volume 10.3 FL (9.6-12.0); Monocytes % 7.3 % (1.7-12.7); Neutrophils % 79.2 % (38.7-73.9); Platelet Count 209 T/CUMM (130-400); Red Blood Count 3.58 MC/CUMM (3.8-5.5); Red Cell Distribution Width 16.9 % (9.3-17.3); White Blood Count 11.1 T/CUMM (4-12)
[2018-12-28 06:49] LABS: Calcium 8.2 MG/DL (8.5-10.1); Osmolality,Calculated 271.7 MOS/KG (273-304)
[2018-12-28] MEDS: POTASSIUM CHLORIDE 20 MEQ TABLET PO PRN ×4 (07:34→14:12)
[2018-12-28] MEDS: oxyCODONE/ACETAMINOPHEN 5-325 MG TABLET PO PRN ×2 (07:34→20:17)
[2018-12-28] MEDS: predniSONE 20 MG TABLET PO SCH (09:51)
[2018-12-28] MEDS: GABAPENTIN 300 MG CAPSULE PO SCH ×3 (09:51→20:14)
[2018-12-28] MEDS: cefTRIAXone 1,000 MG in SYRINGE 1 EACH IV SCH (09:52)
[2018-12-28] MEDS: PANTOPRAZOLE 40 MG TABLET PO SCH (09:52)
[2018-12-28] MEDS: fentaNYL 50 MCG/HR PATCH TRANSDERM SCH (09:52)
[2018-12-28] MEDS: ENOXAPARIN 40 MG/0.4 ML SYRINGE SUBCUT SCH (14:11)
[2018-12-29] MEDS: oxyCODONE/ACETAMINOPHEN 5-325 MG TABLET PO PRN ×2 (02:21→09:28)
[2018-12-29 05:25] LABS: Calcium 8.1 MG/DL (8.5-10.1); Osmolality,Calculated 267.8 MOS/KG (273-304)
[2018-12-29] MEDS: PANTOPRAZOLE 40 MG TABLET PO SCH (09:25)
[2018-12-29] MEDS: predniSONE 20 MG TABLET PO SCH (09:25)
[2018-12-29] MEDS: GABAPENTIN 300 MG CAPSULE PO SCH ×2 (09:25→13:59)
[2018-12-29] MEDS: cefTRIAXone 1,000 MG in SYRINGE 1 EACH IV SCH (09:26)
[2018-12-29 12:25] VITALS: BP 156/85
[2018-12-29] MEDS: ENOXAPARIN 40 MG/0.4 ML SYRINGE SUBCUT SCH (13:55)
[2018-12-29] MEDS ORDERED: HEPARIN LOCK FLUSH 500 UNIT/5 ML SYRINGE IV ONE (15:04)
== END 2018-12-29 15:25 | disposition home or self-care (01) | DRG 682 ==
LOC: N.EDINP 00:42 → N.ED 00:42 → SUATTDRO 05:12 → OBSVTOIN 05:12 → N.4E 06:37 → N.CC 12-24 12:38 → N.4E 12-28 18:19
PROVIDERS: ADMIT Internal Medicine; ATTEND Family Medicine